=== PATIENT | male | born 1995 | race Caucasian/White ===

== ENCOUNTER 2019-01-13 20:52 | Emergency (ER) | payer MEDICAID ==
[~2019-01-13] VITALS: Ht 172.7 cm; Wt 75.3 kg
[2019-01-13 20:55] VITALS: Ht 172.7 cm; Wt 75.3 kg
[2019-01-13 22:41] LABS: AMPHETAMINE QUAL UR NONE DETECTED (See below)
[2019-01-13 22:52] VITALS: BP 144/73
== END 2019-01-13 22:52 | disposition home or self-care (01) ==
LOC: ED 20:52
PROVIDERS: Emergency Medicine
DX: T48.9 Poisoning by, adverse effect of and underdosing of other and unspecified agents primarily acting on the respiratory system (principal); R00.2 Palpitations; Y92.89 Other specified places as the place of occurrence of the external cause